=== PATIENT | female | born 1965 | race Caucasian/White ===

== ENCOUNTER → 2016-08-25 | Outpatient (CLI) | payer MEDICARE ==
--- NOTE | ~2016-08-25 | XA231 ---
[facility] A Service of [facility] & [facility] RADIOLOGY TEXT RESULTS PATIENT: ELEONORA AWAN LOCATION: [facility] : 63 UNIT #: [id number] AGE: [address]: Ulisses Diane MD SEX: F ORDER DR: [id number] [facility] [address] [place], [place] [address] [id number] O MR#: [id number] Acc #: [id number] NAME: ELEONORA AWAN : 1965 SEX: F STUDY DATE/TIME: 08/25/2016 11:52 UNIT: [facility] ROOM: STUDY DESCRIPTION: XA Consult Attending Physician: Ulisses Daine M.D. Ordering Physician: Ulisses Diane M.D. Primary Care Physician: Eros Borjas M.D. MEDICAL IMAGING REPORT This report is preliminary unless electronic signature is present EXAM Thyroid ultrasound consultation, 08/25/2016 CLINICAL HISTORY Requested thyroid needle aspiration. Previous ultrasound had suggested a growing left thyroid nodule. FINDINGS The gland was examined in its entirety by myself personally. The possible plan was examined in its entirety, soft personal. The possible nodule measured on the ultrasound of 07/21/2016 clearly represents an artifactual appearance. There is no evidence of any significant or solid nodule in either the right or left lobe of the gland. There is a tiny 3 mm cyst in the left lobe of the gland which was actually previously measured on the ultrasound of 03/05/2015 and is stable since that time, but no other or suspicious nodule is seen. IMPRESSION The possible solid left lobe nodule suggested on the ultrasound of 08/25/2016 is clearly artifactual. There is a tiny 3 mm left lobe cyst but there is no solid nodule in the left lobe where suggested by ultrasound, no indication for tissue sampling at this time. The right lobe of the exam is normal. Dictated by... Danny Weber M.D. THIS IS AN ELECTRONICALLY VERIFIED REPORT Danny Weber M.D. at 08/26/2016 3:35 PM LESLEY/joanie [facility] A Service of [facility] & [facility] RADIOLOGY TEXT RESULTS PATIENT: ELEONORA AWAN LOCATION: [facility] : 63 UNIT #: [id number] AGE: [address]: Ulisses Diane MD SEX: F ORDER DR: TD: 08/26/2016 03:46 JOB #: [id number] MEDICAL IMAGING REPORT COPY
== END | disposition home or self-care (01) ==
LOC: CIVR 12:25
DX: E04.1 Nontoxic single thyroid nodule (principal); I10 Essential (primary) hypertension; E78.00 Pure hypercholesterolemia, unspecified; F17.200 Nicotine dependence, unspecified, uncomplicated; J45.909 Unspecified asthma, uncomplicated; Z79.899 Other long term (current) drug therapy; E66.9 Obesity, unspecified; Z68.31 Body mass index [BMI] 31.0-31.9, adult
CPT/HCPCS: 76140; 76536; 76942

== ENCOUNTER → 2017-01-28 | Outpatient (CLI) | payer MEDICARE ==
--- NOTE | ~2017-01-28 | US24 ---
[facility] A Service of [facility] & [facility] RADIOLOGY TEXT RESULTS PATIENT: ELEONORA AWAN LOCATION: [facility] : 63 UNIT #: [id number] AGE: [address]: Eros Borjas MD SEX: F ORDER DR: [id number] [facility] [address] [place], [place] [address] [id number] O MR#: [id number] Acc #: [id number] NAME: ELEONORA AWAN : 1965 SEX: F STUDY DATE/TIME: 01/28/2017 11:13 UNIT: [facility] ROOM: STUDY DESCRIPTION: US Breast Unilateral Attending Physician: Eros Borjas M.D. Ordering Physician: Eros Borjas M.D. Primary Care Physician: Eros Borjas M.D. MEDICAL IMAGING REPORT This report is preliminary unless electronic signature is present EXAM Targeted ultrasound, left axilla; 01/28/2017. INDICATIONS Palpable abnormality in the left axilla for the past couple of months. The patient reports the area has decreased in conspicuity and prominence since antibiotic therapy was initiated. She denies any new abnormality in either breast. TECHNIQUE Targeted ultrasound of the left axilla was performed in the area of patient concern. COMPARISON There are no comparisons. FINDINGS The area of palpable concern is in the left axilla. Limited physical exam (with patient consent) was performed by me here in the department. There is no focal dominant mass on my exam. Faint nodularity in the area palpable concern is noted. Ultrasound demonstrates a probably benign area of fat necrosis with a small cystic component in the area of palpable concern measuring 0.9 x 1.0 x 0.5 cm. This could alternatively represent sequela of a resolving epidermal inclusion cyst or sebaceous cyst. There is color flow adjacent to the area and small vessels. It is wider than tall. Imaging features are probably benign and a followup ultrasound in 6 months is recommended to document expected stability. This can be performed in conjunction with a repeat screening mammogram which should be due about the same time as 6-month followup imaging as her last mammogram was performed 07/21/2016. Imaging of the remainder of the left axilla was performed and was negative. Findings and recommendations have been discussed with the patient. She STS. [facility] A Service of [facility] RADIOLOGY TEXT RESULTS PATIENT: ELEONORA AWAN LOCATION: [facility] : 63 UNIT #: [id number] AGE: [address]: Eros Borjas MD SEX: F ORDER DR: was encouraged to return for additional imaging prior to scheduled 6-month followup if her symptoms worsened or a new abnormality develop. She voiced understanding and agreement. IMPRESSION 1. In the area of palpable concern in the left axilla, there is a probably benign area of fat necrosis or perhaps a resolving epidermal inclusion cyst or sebaceous cyst. This measures about a centimeter in maximum diameter. Suggest followup imaging with ultrasound in 6 months to document expected stability or decrease in size. This can be performed at the same time of the patient's screening mammogram which should also be due in July 2017 as well. See discussion above. Findings discussed with the patient here in the department. 2. BIRADS 3. Patients over the age of 40 are entered into a reminder system with target due date for the next mammogram. A result letter will also be sent to the patient. BIRADS: 3 Probably benign finding; short interval followup suggested. Dictated by... Rc Mckeon M.D. THIS IS AN ELECTRONICALLY VERIFIED REPORT Rc Mckeon M.D. at 01/28/2017 5:19 PM Arianna TD: 01/28/2017 15:22 JOB #: [id number] MEDICAL IMAGING REPORT Page 1 of 1 COPY
== END | disposition home or self-care (01) ==
LOC: CWCC 01-12 10:15
DX: R22.30 Localized swelling, mass and lump, unspecified upper limb (principal); N64.89 Other specified disorders of breast
CPT/HCPCS: 76641